=== PATIENT | male | born 1990 | race Caucasian/White ===

== ENCOUNTER 2017-09-17 16:10 | Inpatient (IN) | payer MEDICAID ==
[~2017-09-17] VITALS: Ht 172.7 cm; Wt 95.8 kg
[~2017-09-17 16:10] MED LIST: OLAN7.5T2 PO
[2017-09-17] MEDS ORDERED: LORazepam 2 MG TABLET PO PRN (16:30)
[2017-09-17] MEDS ORDERED: HALOPERIDOL 5 MG TABLET PO PRN (16:30)
[2017-09-17 17:17] VITALS: BP 125/70
[2017-09-17] MEDS ORDERED: INFLUENZA VIRUS VACCINE QVS 2017-18 (3YR+)/PF 60 MCG/0.5 ML SYRINGE IM ONE (17:45)
[2017-09-17 17:46] VITALS: BP 133/88
[2017-09-18 07:01] VITALS: BP 120/75
[2017-09-18 07:45] LABS: ALANINE AMINOTRANSFERASE 118 U/L (12-78); ALBUMIN 3.9 g/dL (3.4-5.0); ANION GAP 6 mmol/L (8-16); ASPARTATE AMINOTRANSFERASE 37 U/L (15-37); BASOPHILS # (AUTO) 0.02 K/uL (0.00-0.20); BASOPHILS % (AUTO) 0.3 % (0.0-2.0); BILIRUBIN,TOTAL 1.1 mg/dL (0.1-1.0); CALCIUM, TOTAL 9.3 mg/dL (8.8-10.5); CARBON DIOXIDE 31 mmol/L (22-29); CHLORIDE 103 mmol/L (98-107); CREATININE 1.12 mg/dL (0.60-1.30); EOSINOPHILS # (AUTO) 0.18 K/uL (0.00-0.70); EOSINOPHILS % (AUTO) 2.21 % (1.0-6.0); GLOMERULAR FILTR. RATE CALC > 60 mL/min (>60); HEMATOCRIT 51.2 % (41-53); HEMOGLOBIN 17.6 g/dL (13.5-17.5); LYMPHOCYTES # (AUTO) 2.4 K/uL (1.0-4.8); LYMPHOCYTES % (AUTO) 29.2 % (22.0-44.0); MEAN CORPUSCULAR HEMOGLOBIN 30.1 pg (26.0-34.0); MEAN CORPUSCULAR HGB CONC 34.3 G/dL (31.0-37.0); MEAN CORPUSCULAR VOLUME 88 fL (80-100); MONOCYTES # (AUTO) 0.6 K/uL (0.1-1.0); MONOCYTES % (AUTO) 6.7 % (2.0-9.0); NEUTROPHILS # (AUTO) 5.1 K/uL (1.8-7.7); NEUTROPHILS % (AUTO) 61.6 % (40.0-70.0); PLATELET COUNT (AUTO) 264 K/uL (150-450); RED BLOOD CELL COUNT(AUTO) 5.83 MIL/uL (4.50-5.90); SODIUM SERUM 140 mmol/L (136-145); TOTAL PROTEIN, SERUM 8.1 g/dL (6.4-8.2); UREA NITROGEN, BLOOD 11 mg/dL (7-18); WHITE BLOOD COUNT (AUTO) 8.2 K/uL (4.5-11.0)
[2017-09-18 08:08] VITALS: BP 120/83
[2017-09-18 16:00] VITALS: BP 114/66
[2017-09-18] MEDS ORDERED: ACETAMINOPHEN 325 MG TABLET PO PRN (17:00)
[2017-09-18] MEDS ORDERED: IBUPROFEN 400 MG TABLET PO PRN (17:00)
[2017-09-18] MEDS: OLANZapine 7.5 MG TABLET PO SCH (20:09)
[2017-09-18] MEDS: ZOLPIDEM TARTRATE 10 MG TABLET PO PRN (20:09)
[2017-09-19 06:18] VITALS: BP 122/73
[2017-09-19 08:21] VITALS: BP 127/95
[2017-09-19 16:00] VITALS: BP 128/81
[2017-09-19] MEDS: OLANZapine 7.5 MG TABLET PO SCH (20:31)
[2017-09-19] MEDS: ZOLPIDEM TARTRATE 10 MG TABLET PO PRN (20:32)
[2017-09-20 06:32] VITALS: BP 132/84
[2017-09-20 08:40] VITALS: BP 137/72
[2017-09-20 10:09] LABS: GLUCOSE, URINE (UA) NEGATIVE (NEGATIVE); KETONES,URINE NEGATIVE (NEGATIVE); LEUKOCYTE ESTERASE ,URINE NEGATIVE (NEGATIVE); OCCULT BLOOD,URINE NEGATIVE (NEGATIVE); PROTEIN,URINE NEGATIVE (NEGATIVE)
[2017-09-20 10:33] LABS: ADD UA MICROSCOPIC NO; APPEARANCE,URINE CLEAR (CLEAR)
[2017-09-20 16:12] VITALS: BP 134/74
[2017-09-20] MEDS: OLANZapine 7.5 MG TABLET PO SCH (20:10)
[2017-09-21 06:40] VITALS: BP 129/68
[2017-09-21 10:36] VITALS: BP 111/76
[2017-09-21 16:23] VITALS: BP 134/77
== END 2017-09-21 17:17 | disposition home or self-care (01) | DRG 750 ==
LOC: B3A 16:24
PROVIDERS: ADMIT Psychiatry & Neurology Psychiatry; ATTEND Psychiatry & Neurology Psychiatry
PROC: 3E0234Z Introduction of Serum, Toxoid and Vaccine into Muscle, Percutaneous Approach (ICD-10-PCS; principal; 2017-09-18)
DX: F25.9 Schizoaffective disorder, unspecified (principal); R17 Unspecified jaundice; F32.9 Major depressive disorder, single episode, unspecified; F19.10 Other psychoactive substance abuse, uncomplicated; R74.0 Nonspecific elevation of levels of transaminase and lactic acid dehydrogenase [LDH]; Z23 Encounter for immunization
CPT/HCPCS: 80307; 90471